=== PATIENT | male | born 1980 | race Caucasian/White ===

== ENCOUNTER 2020-11-14 11:26 | Outpatient (CLI) | payer OTHER ==
--- NOTE | 2020-11-14 16:19 | XRAY Report ---
PROCEDURE: Shoulder 3 View RT INDICATIONS: STRAIN OF UNSPECIFIED MUSCLE, FASCIA, AND TENDON OF R SHOULDER TECHNIQUE: 3 views of the shoulder were acquired. COMPARISON: None. FINDINGS: Bones: No fractures or dislocations. No suspicious bony lesions. Visualized ribs appear intact. Soft tissues: No suspicious soft tissue calcifications. 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 No fracture or subluxation seen. Reviewed by: Arian Marin MD on 11/14/2020 4:18 PM PST Approved by: Arian Marin MD on 11/14/2020 4:18 PM PST Station ID: [id number]
== END 2020-11-14 23:59 | disposition home or self-care (01) ==
LOC: DI.N 11:26
PROVIDERS: ATTEND Nurse Practitioner
DX: M19.011 Primary osteoarthritis, right shoulder (principal)